=== PATIENT | female | born 1955 | race Two or more races ===

== ENCOUNTER 2019-03-13 14:44 | Emergency (ER) | payer MEDICARE ==
[~2019-03-13] VITALS: Ht 154.9 cm; Wt 63.5 kg
--- NOTE | 2019-03-13 14:52 | NUR ---
ED Nurse Note: Patient is on the phone and RN unable to obtain information at this time.
[2019-03-13] MEDS ORDERED: ASPIRIN81 MG ORAL (14:59)
[2019-03-13 15:03] VITALS: BP 136/80
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
[2019-03-13] MEDS ORDERED: ACETAMINOPHEN500 M3 ORAL (15:18)
[2019-03-13 15:34] VITALS: BP 136/80
--- NOTE | 2019-03-13 15:35 | NUR ---
Patient was evaluated, treated and discharged with aftercare instructions by MD/PA
== END 2019-03-13 15:41 | disposition home or self-care (01) ==
LOC: EMR 15:30
DX: S13.9XXA Sprain of joints and ligaments of unspecified parts of neck, initial encounter (principal); S80.02XA Contusion of left knee, initial encounter; S40.022A Contusion of left upper arm, initial encounter; V43.52XA Car driver injured in collision with other type car in traffic accident, initial encounter; Y92.410 Unspecified street and highway as the place of occurrence of the external cause; I10 Essential (primary) hypertension; Z88.8 Allergy status to other drugs, medicaments and biological substances; Z91.041 Radiographic dye allergy status
CPT/HCPCS: 99281

== ENCOUNTER 2019-07-11 22:04 | Emergency (ER) | payer MEDICARE, BC ==
[~2019-07-11] VITALS: Ht 154.9 cm; Wt 64.4 kg
[~2019-07-11 22:04] MED LIST: ACETAMINOPHEN500 M3 ORAL; ASPIRIN81 MG ORAL
[2019-07-11 22:21] VITALS: BP 119/74
--- NOTE | 2019-07-11 22:37 | Emergency Room Report ---
History of Present Illness General Chief Complaint: Headache Source: Patient Present Illness HPI Is a 63-year-old female with history of hypertension. She presents with frontal headache. Onset for the last 2 to 3 days. She also has some mild numbness to the left cheek area. Better with ibuprofen. Pain is throbbing in nature. 6 out of 10. No focal deficit. Allergies: Coded Allergies: IODINE (Verified Allergy, Unknown, 03/13/19) IOPAMIDOL (Unverified Allergy, Unknown, 03/13/19) Uncoded Allergies: IV CONTRAST (Allergy, Unknown, 03/13/19) Patient History Past Medical History: see triage record, old chart reviewed, HTN Past Surgical History: none Pertinent Family History: none Social History: Denies: smoking Last Menstrual Period: None Now: No : 3 Para: 2 Immunizations: other Reviewed Nursing Documentation: PMH: Agreed; PSxH: Agreed Nursing Documentation-PMH Hx Cardiac Problems: No - hyperlipidemia Hx Hypertension: Yes Review of Systems Eye: Denies: eye pain, blurred vision ENT: Denies: ear pain, nose congestion, throat swelling Respiratory: Denies: cough, shortness of breath Cardiovascular: Denies: chest pain, palpitations Gastrointestinal: Denies: abdominal pain, diarrhea, nausea, vomiting Musculoskeletal: Denies: back pain, joint pain Skin: Denies: rash Neurological: Reports: headache; Denies: numbness Endocrine: Denies: increased thirst, increased urine Hematologic/Lymphatic: Denies: easy bruising All Other Systems: negative except mentioned in HPI Physical Exam Vital Signs Date Time Temp Pulse Resp B/P (MAP) Pulse Ox O2 Delivery O2 Flow Rate FiO2 07/11/19 22:21 97.9 57 18 119/74 (89) 97 Room Air Vitals normal Sp02 EP Interpretation: reviewed, normal General Appearance: well appearing, no apparent distress, alert Head: normocephalic, atraumatic Eyes: bilateral eye PERRL, bilateral eye EOMI ENT: hearing grossly normal, normal pharynx Neck: full range of motion, supple, no meningismus Respiratory: chest non-tender, lungs clear, normal breath sounds Cardiovascular #1: regular rate, rhythm, no murmur Gastrointestinal: normal bowel sounds, non tender, no mass, no organomegaly, no bruit, non-distended Musculoskeletal: back normal, gait/station normal, normal range of motion Psychiatric: mood/affect normal Medical Decision Making Diagnostic Impression: Primary Impression: Headache Qualified Codes: R51 - Headache ER Course Patient presents with headache. No evidence of CVA, TIA, bleed or other neoplastic process. No evidence of meningitis. Will discharge home. CT/MRI/US Diagnostic Results CT/MRI/US Diagnostic Results : Imaging Test Ordered: CT head Impression Read by radiologist. Negative. Last Vital Signs Date Time Temp Pulse Resp B/P (MAP) Pulse Ox O2 Delivery O2 Flow Rate FiO2 07/11/19 22:21 97.9 57 18 119/74 (89) 97 Room Air Status: improved Disposition: HOME, SELF-CARE Condition: Stable Patient Instructions: General Headache Without Cause Additional Instructions: Follow-up with your doctor in 7 days. Return if symptoms worsen. Josep Amaro MD Jul 11, 2019 22:37
--- NOTE | 2019-07-11 23:48 | Diagnostic Imaging Report ---
EXAM: CT Head Without Intravenous Contrast CLINICAL HISTORY: PAIN TECHNIQUE: Axial computed tomography images of the head/brain without intravenous contrast. CTDI is 70.53 mGy and DLP is 1378 mGy-cm. One or more of the following dose reduction techniques were used: automated exposure control, adjustment of the mA and/or kV according to patient size, use of iterative reconstruction technique. COMPARISON: none FINDINGS: No intracranial hemorrhage, abnormal intra- or extra-axial collections or parenchymal lesions are seen. There are involutional changes with prominence of the sulci, basal cisterns and ventricles. Scattered white matter hypoattenuations are present, likely from small vessel disease. The kearns-white differentiation is preserved. No evidence of mass effect, midline shift, or edema. The osseous structures are unremarkable. The visualized portions of the paranasal sinuses are clear. IMPRESSION: 1. 1. No acute intracranial process. 2. 2. Involutional changes with small vessel disease.
[2019-07-11 23:57] VITALS: BP 125/79
== END 2019-07-11 23:57 | disposition home or self-care (01) ==
LOC: EMR 23:50
DX: R51 Headache (principal); I10 Essential (primary) hypertension; E78.5 Hyperlipidemia, unspecified; Z91.041 Radiographic dye allergy status; Z88.8 Allergy status to other drugs, medicaments and biological substances
CPT/HCPCS: 70450; 99284

== ENCOUNTER 2019-09-08 19:43 | Emergency (ER) | payer MEDICARE, BC ==
[~2019-09-08] VITALS: Ht 154.9 cm; Wt 64.9 kg
--- NOTE | 2019-09-08 20:20 | NUR ---
ED Nurse Note: Patient walked into ED c/o variet of issues, states that shes been experiencing headaches and dizziness for the past few days, states that it all started due to a foul odor that she is experiencing in he apartment, rates her pain a 5/10 pain, will wait for further orders
[2019-09-08] MEDS ORDERED: Excedrin Migraine tab ORAL ONE (21:15)
[2019-09-08] MEDS ORDERED: Prochlorperazine 10mg tab ORAL ONE (21:15)
--- NOTE | 2019-09-08 21:43 | NUR ---
ED Nurse Note: urine sent down
[2019-09-08 21:45] LABS: APPEARANCE,URINE CLEAR; BILIRUBIN, URINE NEGATIVE (NEGATIVE); COLOR,URINE PALE YELLOW; GLUCOSE, URINE (UA) NEGATIVE (NEGATIVE); KETONES,URINE NEGATIVE (NEGATIVE); LEUKOCYTE ESTERASE ,URINE NEGATIVE (NEGATIVE); NITRITE,URINE NEGATIVE (NEGATIVE); PH,URINE 5 (4.5-8.0); PROTEIN,URINE NEGATIVE (NEGATIVE); UROBILINOGEN,URINE NORMAL MG/DL (0.0-1.0)
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
[2019-09-08 22:14] VITALS: BP 144/72
[2019-09-08 22:15] VITALS: BP 144/72
[2019-09-08] MEDS ORDERED: ONDANSETRON ODT4 MG BC (22:15)
[2019-09-08] MEDS ORDERED: TYLENOL EXTRA500 MG ORAL (22:15)
--- NOTE | 2019-09-08 22:15 | NUR ---
ER DISCHARGE NOTE: Patient is cleared to be discharged per ERMD, pt is aox4, on room air, with stable vital signs. pt was given dc and prescription instructions, pt was able to verbalize understanding, pt id band removed without complications. pt is able to ambulate with steady gait. pt took all belongings.
== END 2019-09-08 22:15 | disposition home or self-care (01) ==
LOC: EMR 21:20
DX: R11.0 Nausea (principal); R51 Headache; Z91.041 Radiographic dye allergy status; Z88.6 Allergy status to analgesic agent; Z88.8 Allergy status to other drugs, medicaments and biological substances; I10 Essential (primary) hypertension; R73.03 Prediabetes; E78.5 Hyperlipidemia, unspecified
CPT/HCPCS: 81003; 99282